=== PATIENT | female | born 1940 | race Caucasian/White ===

== ENCOUNTER 2017-11-11 13:33 | Inpatient (IN) | payer OTHER ==
[~2017-11-11] VITALS: Ht 154.9 cm; Wt 55.3 kg
[2017-11-11 14:27] LABS: CALCIUM 9.1 mg/dL (8.5-10.1); CARBON DIOXIDE 30.9 mmol/L (21-32); CHLORIDE SERUM 104 mmol/L (98-107); GLUCOSE SERUM 156 mg/dL (74-106); POTASSIUM SERUM 3.5 mmol/L (3.5-5.1); SODIUM SERUM 139 mmol/L (136-145)
[2017-11-11 14:32] LABS: ALBUMIN 3.8 g/dL (3.4-5.0); ALKALINE PHOSPHATASE 81 U/L (46-116); ALT/SGPT 25 U/L (14-59); AST/SGOT 18 U/L (15-37); BILIRUBIN TOTAL 0.3 mg/dL (0.20-1.00); TOTAL PROTEIN, SERUM 8.2 g/dL (6.4-8.2)
[2017-11-11 14:38] LABS: BASOPHIL % 0.7 % (0-2); PLATELET COUNT 226 x10^3mcL (130-400)
[2017-11-11 14:40] LABS: RED CELL DISTRIBUTION WIDTH 14.9 % (11.5-14.5)
[2017-11-11] MEDS ORDERED: METOPROLOL SUCC50 M2 PO (15:02)
[2017-11-11] MEDS ORDERED: NOR10 PO (15:02)
[2017-11-11] MEDS ORDERED: LOVASTATIN40 MG PO (15:02)
[2017-11-11 15:47] LABS: microscopic required? NO
[2017-11-11 15:59] VITALS: BP 137/54
[2017-11-11 16:13] LABS: urine erythrocyte NEGATIVE (NEGATIVE)
[2017-11-11 16:20] LABS: MAGNESIUM 2.4 mg/dL (1.8-2.4); PHOSPHOROUS 2.6 mg/dL (2.5-4.9)
[2017-11-11 16:21] LABS: CHOLESTEROL/HDL RATIO 2.6
[2017-11-11 16:28] LABS: T3 TOTAL 0.93 ng/mL
[2017-11-11 17:26] LABS: FREE T4 0.93 ng/dL (0.76-1.46); FREE THYROXINE INDEX 2.7 ug/dL (1.4-4.5); T4(THYROXINE) 7.6 ug/dL (4.7-13.3)
[2017-11-11 20:40] VITALS: BP 132/75
[2017-11-12 04:57] VITALS: BP 117/66
[2017-11-12 06:50] LABS: BASOPHIL % 1.4 % (0-2); PLATELET COUNT 203 x10^3mcL (130-400); RED CELL DISTRIBUTION WIDTH 13.5 % (11.5-14.5)
[2017-11-12 07:15] LABS: CALCIUM 8.9 mg/dL (8.5-10.1); CARBON DIOXIDE 28.2 mmol/L (21-32); CHLORIDE SERUM 106 mmol/L (98-107); CREATININE SERUM 0.9 mg/dL (0.6-1.0); GLUCOSE SERUM 89 mg/dL (74-106); MAGNESIUM 2.4 mg/dL (1.8-2.4); PHOSPHOROUS 3.5 mg/dL (2.5-4.9); POTASSIUM SERUM 3.8 mmol/L (3.5-5.1); SODIUM SERUM 143 mmol/L (136-145)
[2017-11-12 10:08] VITALS: BP 118/68
[2017-11-12 10:09] VITALS: BP 125/72
[2017-11-12 10:11] VITALS: BP 125/72
[2017-11-12 12:55] VITALS: BP 116/56
[2017-11-12 15:03] VITALS: BP 116/56
[2017-11-12] MEDS ORDERED: NIT0.4 SL (15:13)
[2017-11-12] MEDS ORDERED: METOPROLOL SUCC50 M2 PO (15:32)
== END 2017-11-12 16:30 | disposition home or self-care (01) | DRG 206 ==
LOC: ED 13:33 → DU 14:58
PROVIDERS: Emergency Medicine; Family Medicine
DX: M94.0 Chondrocostal junction syndrome [Tietze] (principal); I49.1 Atrial premature depolarization; I09.9 Rheumatic heart disease, unspecified; I10 Essential (primary) hypertension; E78.5 Hyperlipidemia, unspecified; Z68.23 Body mass index [BMI] 23.0-23.9, adult
CPT/HCPCS: 83880; 84439; Q0092